=== PATIENT | female | born 2005 | race Caucasian/White ===

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

== ENCOUNTER 2024-02-24 17:00 | Emergency (ER) | payer OTHER ==
[~2024-02-24] VITALS: Ht 160 cm; Wt 69.2 kg
[2024-02-24] MEDS ORDERED: SUMA20SP4 (17:06)
[2024-02-24] MEDS ORDERED: RIZA10TA58 (17:06)
[2024-02-24] MEDS ORDERED: AMIT50TA (17:06)
[2024-02-24] MEDS: IBUPROFEN 600MG TAB PO ONE (20:48)
[2024-02-24 21:43] VITALS: BP 131/92; TEMP 98; O2SAT 99
== END 2024-02-24 21:44 | disposition home or self-care (01) ==
LOC: M ED 17:00
DX: R51.9 Headache, unspecified (principal); W22.8XXA Striking against or struck by other objects, initial encounter; Y92.9 Unspecified place or not applicable; Y93.9 Activity, unspecified; Y99.0 Civilian activity done for income or pay

== ENCOUNTER 2024-12-08 19:52 | Emergency (ER) | payer OTHER ==
[~2024-12-08] VITALS: Ht 160 cm; Wt 71.1 kg
[~2024-12-08 19:52] MED LIST: AMIT50TA; RIZA10TA58; SUMA20SP4
[2024-12-09] MEDS: IBUPROFEN 600MG TAB PO ONE (01:36)
[2024-12-09 02:02] VITALS: BP 137/79; TEMP 97.7; O2SAT 98
== END 2024-12-09 02:27 | disposition home or self-care (01) ==
LOC: M ED 19:52
DX: S63.614A Unspecified sprain of right ring finger, initial encounter (principal); W23.1XXA Caught, crushed, jammed, or pinched between stationary objects, initial encounter; Y92.89 Other specified places as the place of occurrence of the external cause; Y93.89 Activity, other specified; Y99.0 Civilian activity done for income or pay; Z79.899 Other long term (current) drug therapy